=== PATIENT | male | born 1965 | race African-American/Black ===

== ENCOUNTER 2016-05-16 11:22 | Inpatient (IN) | payer OTHER ==
[2016-05-16 12:07] VITALS: BMI 32.1
--- NOTE | 2016-05-16 14:11 | HP ---
COWS - Scale Resting Pulse: 2= OK 101-120 Sweatin=Flushed/Facial Moisture Restless Observation: 1= Difficult to Sit Still Pupil Size: 1= Pupils >than Normal Bone or Joint Aches: 2= Severe Diffuse Aches Runny Nose/ Eye Tearin= Nasal Congestion GI Upset > 30mins: 1= Stomach Cramp Tremor Observation: 1= Tremor Morgan, Not Seen Yawning Observation: 0= None Anxiety or Irritability: 1=Feels Anxious/Irritable Goose Flesh Skin: 0=Smooth Skin COWS Score: 12 CIWA Score - CIWA Score Nausea/Vomitin Muscle Tremors: 2 Anxiety: 3 Agitation: 3 Paroxysmal Sweats: 2 Orientation: 0-Oriented Tacttile Disturbances: 2-Mild Itch/Numbness/Burn Auditory Disturbances: 0-None Visual Disturbances: 0-None Headache: 2-Mild CIWA-Ar Total Score: 16 Admission ROS BHS - HPI Chief Complaint: I Need to stop using drugs and alcohol .I need help. Allergies/Adverse Reactions: Allergies Allergy/AdvReac Type Severity Reaction Status Date / Time No Known Allergies Allergy Verified 02/05/14 19:35 History of Present Illness: 50 y/o m pt with h/o opioids , benzo, and alcohol dep. seeking detox. Exam Limitations: No Limitations - Ebola screening Have you traveled outside of the country in the last 21 days: No Have you had contact with anyone from an Ebola affected area: No Have you been sick,other than usual withdrawal symptoms: No Do you have a fever: No - Review of Systems Constitutional: Malaise, Night Sweats, Changes in sleep EENT: reports: Dental Problems Respiratory: reports: No Symptoms reported Cardiac: reports: No Symptoms Reported GI: reports: Nausea, Indigestion : reports: Other (hesitancy) Musculoskeletal: reports: Back Pain Integumentary: reports: Rash (eczema) Neuro: reports: Headache Endocrine: reports: No Symptoms Reported Hematology: reports: Easy Bleeding Psychiatric: reports: Agitated, Anxious, Depressed Other Systems: Reviewed and Negative Patient History - Patient Medical History Hx Anemia: No Hx Asthma: Yes Hx Chronic Obstructive Pulmonary Disease (COPD): No Hx Cancer: No Hx Cardiac Disorders: No Hx Congestive Heart Failure: No Hx Hypertension: Yes Hx Hypercholesterolemia: No Hx Pacemaker: No HX Cerebrovascular Accident: No Hx Seizures: No Hx Dementia: No Hx Diabetes: No Hx Gastrointestinal Disorders: No Hx Liver Disease: No Hx Genitourinary Disorders: No Hx Sexually Transmitted Disorders: No Hx Renal Disease (ESRD): No Hx Thyroid Disease: No Hx Human Immunodeficiency Virus (HIV): No Hx Hepatitis C: No Hx Depression: No Hx Suicide Attempt: No Hx Bipolar Disorder: Yes Hx Schizophrenia: No Other Medical History: h/o eczema - Patient Surgical History Past Surgical History: Yes Hx Neurologic Surgery: No Hx Cataract Extraction: No Hx Cardiac Surgery: No Hx Lung Surgery: No Hx Breast Surgery: No Hx Breast Biopsy: No Hx Abdominal Surgery: No Hx Appendectomy: No Hx Cholecystectomy: No Hx Genitourinary Surgery: No Hx Section: No Hx Orthopedic Surgery: Yes (RT.KNEE SX 2010, left shoulder , rt shoulder ) Anesthesia Reaction: No - PPD History Documented Results: Positive w/o proof PPD to be Administered?: No - Reproductive History Patient is a Female of Child Bearing Age (11 -55 yrs old): No - Smoking Cessation Smoking history: Current every day smoker Have you smoked in the past 12 months: Yes Aproximately how many cigarettes per day: 6 Cigars Per Day: 0 Hx Chewing Tobacco Use: No Initiated information on smoking cessation: Yes 'Breaking Loose' booklet given: 05/16/16 - Substance & Tx. History Hx Alcohol Use: Yes Hx Substance Use: Yes Substance Use Type: Alcohol, Opiates, Tranquilizers - Substances Abused Alcohol Route: Oral Frequency: Daily Amount used: amy 3 pts /d Age of first use: 15 Date of Last Use: 05/15/16 Benzodiazepine (Klonopin) Route: Oral Frequency: Daily Amount used: 1mg bid Age of first use: 46 Date of Last Use: 05/16/16 Heroin Route: Inhalation Frequency: 1-2 times per week Amount used: 1 bag/nasal Age of first use: 27 Date of Last Use: 05/16/16 percocet 10-325 Route: Oral Frequency: Daily Amount used: 1 tab bid Age of first use: 47 Date of Last Use: 05/16/16 Family Disease History - Family Disease History Family Disease History: Other: Father (htn ), Mother (htn), Sister (htn ) Admission Physical Exam BHS - Vital Signs Vital Signs: Vital Signs - 24 hr 05/16/16 12:04 Temperature 97.9 F Pulse Rate 110 H Respiratory 18 Rate Blood Pressure 141/91 50 y/o m pt aox3 in nad cooperative with exam . - Physical General Appearance: Yes: Disheveled, Obese, Anxious HEENTM: Yes: EOMI, Hearing grossly Normal, Normal Voice, KATHI Respiratory: Yes: Chest Non-Tender, Lungs Clear, Normal Breath Sounds, No Respiratory Distress Neck: Yes: Within Normal Limits, Supple, Trachea in good position Breast: Yes: Within Normal Limits Cardiology: Yes: Regular Rhythm, Regular Rate, S1, S2 Abdominal: Yes: Normal Bowel Sounds, Non Tender, Soft, Increased Bowel Sounds Genitourinary: Yes: Hesitency Back: Yes: Decreased Range of Motion Musculoskeletal: Yes: Back pain Extremities: Yes: Within Normal Limits Neurological: Yes: brick catcher II-XII NML intact, Fully Oriented, Motor Strength 5/5, Normal Response Integumentary: Yes: Rash Lymphatic: Yes: Within Normal Limits - Addiitonal Findings: eczema - Diagnostic (1) Alcohol dependence Current Visit: Yes Status: Chronic Qualifiers: Substance use status: uncomplicated Qualified Code(s): F10.20 - Alcohol dependence, uncomplicated (2) Benzodiazepine dependence Current Visit: No Status: Chronic (3) Bipolar depression Current Visit: Yes Status: Chronic (4) Chronic low back pain Current Visit: Yes Status: Chronic Qualifiers: Back pain laterality: right Sciatica presence: without sciatica Qualified Code(s): M54.5 - Low back pain; G89.29 - Other chronic pain (5) HTN (hypertension) Current Visit: Yes Status: Chronic Qualifiers: Hypertension type: essential hypertension Qualified Code(s): I10 - Essential (primary) hypertension (6) Nicotine dependence Current Visit: Yes Status: Chronic Qualifiers: Nicotine product type: cigarettes Substance use status: uncomplicated Qualified Code(s): F17.210 - Nicotine dependence, cigarettes, uncomplicated (7) Opioid dependence Current Visit: Yes Status: Chronic Qualifiers: Substance use status: uncomplicated Qualified Code(s): F11.20 - Opioid dependence, uncomplicated Cleared for Admission BHS - Detox or Rehab [facility] Level of Care: Medically Managed Detox Regimen/Protocol: Methadone/Librium BHS Breath Alcohol Content Breath Alcohol Content: 0 Urine Drug Screen - Results Drug Screen Negative: No Urine Drug Screen Results: OPI-Opiates, MTD-Methadone, OXY-Oxycodone
[2016-05-16] MEDS ORDERED: NICOTINE POLACRILEX 2 MG GUM BC PRN ×2 (14:47→15:35)
[2016-05-16] MEDS ORDERED: MAG HYDROX/AL HYDROX/SIMETH 30 ML UNIT-DOSE CUP PO PRN ×2 (14:47→15:35)
[2016-05-16] MEDS ORDERED: MAGNESIUM CITRATE 300 ML BOTTLE PO PRN ×2 (14:47→15:35)
[2016-05-16] MEDS ORDERED: guaiFENesin/D-METHORPHAN HB 10 ML UNIT-DOSE CUPS PO PRN ×2 (14:47→15:35)
[2016-05-16] MEDS ORDERED: chlordiazePOXIDE HCL 25 MG CAPSULE PO PRN ×2 (14:47→15:35)
[2016-05-16] MEDS ORDERED: IBUPROFEN 400 MG TABLET (FP) PO PRN (14:47)
[2016-05-16] MEDS ORDERED: METHADONE HCL 10 MG TABLET (FOR DETOX USE ONLY) PO ONE ×2 (14:47→23:00)
[2016-05-16] MEDS ORDERED: LOPERAMIDE HCL 2 MG CAPSULE PO PRN ×2 (14:47→15:35)
[2016-05-16] MEDS ORDERED: diphenhydrAMINE HCL 50 MG CAPSULE PO PRN ×2 (14:47→15:35)
[2016-05-16] MEDS ORDERED: ACETAMINOPHEN 325 MG TABLET (FP) PO PRN ×2 (14:47→15:35)
[2016-05-16] MEDS ORDERED: MAGNESIUM HYDROX 2400MG/30ML ORAL SUSPENSION 30 ML CUP PO PRN ×2 (14:47→15:35)
[2016-05-16] MEDS ORDERED: MENTHOL/PHENOL 1 EACH UD MM PRN ×2 (14:47→15:35)
[2016-05-16] MEDS ORDERED: P-EPHED 60MG/TRIPROLIDI 2.5MG TABLET PO PRN ×2 (14:47→15:35)
[2016-05-16] MEDS ORDERED: hydrOXYzine PAMOATE 25 MG CAPSULE (FP) PO PRN ×2 (14:47→15:35)
[2016-05-16] MEDS ORDERED: ALBUTEROL SO4 6.7 GM HFA INHALER IH PRN ×2 (14:49→15:39)
[2016-05-16] MEDS ORDERED: HYDROCORTISONE 1% TOPICAL CREAM 30 GM TUBE TP PRN (14:51)
[2016-05-16] MEDS ORDERED: chlordiazePOXIDE HCL 25 MG CAPSULE PO SCH ×2 (17:00)
[2016-05-16] MEDS: chlordiazePOXIDE HCL 25 MG CAPSULE PO SCH ×2 (17:22→22:57)
[2016-05-16] MEDS ORDERED: THIAMINE HCL 100 MG TABLET (FP) PO SCH (22:00)
[2016-05-16] MEDS: THIAMINE HCL 100 MG TABLET (FP) PO SCH (22:57)
[2016-05-16 23:07] LABS: URINE APPEARANCE CLEAR; URINE BILIRUBIN NEGATIVE (NEGATIVE); URINE BLOOD NEGATIVE (NEGATIVE); URINE COLOR LT. YELLOW; URINE GLUCOSE (UA) NEGATIVE (NEGATIVE); URINE KETONE NEGATIVE (NEGATIVE); URINE NITRITE NEGATIVE (NEGATIVE); URINE PROTEIN NEGATIVE (NEGATIVE); URINE UROBILINOGEN 0.2 E.U/dl E.U./dl (0.2-1.0)
[2016-05-16 23:09] LABS: URINE LEUK ESTERASE TRACE (NEGATIVE)
[2016-05-16 23:14] LABS: URINE MUCUS RARE; URINE RBC 23 /hpf (0-3); URINE WBC 23 /hpf (3-5)
[2016-05-17] MEDS: chlordiazePOXIDE HCL 25 MG CAPSULE PO SCH ×4 (05:44→22:27)
--- NOTE | 2016-05-17 08:22 | CONSULT ---
[facility] Psychiatric Consult - Data Date of interview: 05/17/16 Admission source: [facility] Identifying data: This is 50 years old male with no psychiatric hospitalization history intoxicated with Opioids, Alcohol, Xanax and Nicotine, Cocaine. Patient with Bipolar Disorder history Substance Abuse History: Smoking history: Current every day smoker. Have you smoked in the past 12 months: Yes. Aproximately how many cigarettes per day: 6. Cigars Per Day: 0. Hx Chewing Tobacco Use: No. Initiated information on smoking cessation: Yes. 'Breaking Loose' booklet given: 05/16/16. - Substance & Tx. History. Hx Alcohol Use: Yes. Hx Substance Use: Yes. Substance Use Type : Alcohol, Opiates, Tranquilizers. - Substances Abused. Alcohol. Route: Oral. Frequency: Daily. Amount used: amy 3 pts /d. Age of first use: 15. Date of Last Use: 05/15/16. Benzodiazepine (Klonopin). Route: Oral. Frequency: Daily. Amount used: 1mg bid. Age of first use: 46. Date of Last Use: 05/16/16. Heroin. Route: Inhalation. Frequency: 1-2 times per week. Amount used: 1 bag/nasal. Age of first use: 27. Date of Last Use: 05/16/16. * * percocet 10-325. Route: Oral. Frequency: Daily. Amount used: 1 tab bid. Age of first use: 47. Date of Last Use: 05/16/16 Medical History: LBP, Arthritis history, PPD+ History Psychiatric History: Patient has Bipolar disorder history, reports taking prior to admission: Ambien 19mg po qhs for severe insomnia with good response Physical/Sexual Abuse/Trauma History: Denies Additional Comment: Ambien 19mg po qhs Mental Status Exam - Mental Status Exam Alert and Oriented to: Person Cognitive Function: Fair Patient Appearance: Unkempt Mood: Sad Affect: Mood Congruent Patient Behavior: Cooperative Speech Pattern: Appropriate Voice Loudness: Mildly Soft/Quiet Thought Process: Goal Oriented Thought Disorder: Being Controlled Hallucinations: Denies Suicidal Ideation: Denies Homicidal Ideation: Denies Insight/Judgement: Fair Sleep: Difficulty falling asleep Appetite: Fair Muscle strength/Tone: Mild Hypotonicity Gait/Station: Shuffling Additional Comments: Ambien 19mg po qhs Psychiatric Findings - Problem List ([place] 1, 2,3) (1) Alcohol dependence Current Visit: Yes Status: Chronic Qualifiers: Substance use status: uncomplicated Qualified Code(s): F10.20 - Alcohol dependence, uncomplicated (2) Bipolar depression Current Visit: Yes Status: Suspected (3) Nicotine dependence Current Visit: Yes Status: Chronic Qualifiers: Nicotine product type: cigarettes Substance use status: uncomplicated Qualified Code(s): F17.210 - Nicotine dependence, cigarettes, uncomplicated (4) Opioid dependence Current Visit: Yes Status: Chronic Qualifiers: Substance use status: uncomplicated Qualified Code(s): F11.20 - Opioid dependence, uncomplicated (5) Benzodiazepine dependence Current Visit: No Status: Chronic (6) Cocaine dependence Current Visit: No Status: Chronic (7) Drug-induced mood disorder Current Visit: Yes Status: Acute - Initial Treatment Plan Initial Treatment Plan: Ambien 19mg po qhs
[2016-05-17] MEDS ORDERED: diazePAM 5 MG TABLET PO PRN (09:23)
[2016-05-17] MEDS ORDERED: METHADONE HCL 10 MG TABLET (FOR DETOX USE ONLY) PO ONE ×2 (09:30→23:00)
--- NOTE | 2016-05-17 09:52 | PN ---
[facility] CIWA - CIWA Score Nausea/Vomitin Muscle Tremors: 2 Anxiety: 3 Agitation: 2 Paroxysmal Sweats: 3 Orientation: 0-Oriented Tacttile Disturbances: 1-Very Mild Itch/Numbness Auditory Disturbances: 0-None Visual Disturbances: 0-None Headache: 0-None Present CIWA-Ar Total Score: 14 S COWS - Scale Resting Pulse: 0= ND 80 or Below Sweatin= Chills/Flushing Restless Observation: 1= Difficult to Sit Still Pupil Size: 1= Pupils >than Normal Bone or Joint Aches: 0= None Runny Nose/ Eye Tearin= Nasal Congestion GI Upset > 30mins: 1= Stomach Cramp Tremor Observation of Outstretched Hands: 1= Tremor Bedias, Not Seen Yawning Observation: 0= None Anxiety or Irritability: 2=Irritable/Anxious Goose Flesh Skin: 0=Smooth Skin COWS Score: 8 S Progress Note (SOAP) Subjective: interrupted sleep, sweats, nausea Objective: 05/17/16 09:51 Vital Signs Temperature 97 F L 05/17/16 05:53 Pulse Rate 79 05/17/16 05:53 Respiratory Rate 18 05/17/16 05:53 Blood Pressure 136/80 05/17/16 05:53 O2 Sat by Pulse Oximetry (%) Laboratory Tests 05/16/16 22:20 Urine Color Lt. yellow Urine Appearance Clear Urine pH 6.0 Ur Specific [place] 1.020 Urine Protein Negative Urine Glucose (UA) Negative Urine Ketones Negative Urine Blood Negative Urine Nitrite Negative Urine Bilirubin Negative Urine Urobilinogen 0.2 e.u/dl Ur Leukocyte Esterase Trace H Urine RBC 23 Urine WBC 23 Ur Epithelial Cells Rare Urine Mucus Rare pending labs Assessment: 05/17/16 09:51 withdrawal sxms Plan: cont. detox increase fluids
[2016-05-17] MEDS ORDERED: amLODIPine BESYLATE 5 MG TABLET (FP) PO SCH (10:00)
[2016-05-17] MEDS ORDERED: NICOTINE 14 MG/24 HOURS TOPICAL PATCH TD SCH (10:00)
[2016-05-17] MEDS ORDERED: METHADONE HCL 10 MG TABLET (FOR DETOX USE ONLY) PO SCH (10:00)
[2016-05-17] MEDS ORDERED: PRENATAL VITAMINS W/ FOLIC ACID TABLET (FP) PO SCH (10:00)
[2016-05-17 10:21] LABS: MCH 27.7 pg (25.7-33.7); MCHC 32.5 g/dl (32.0-35.9); MEAN CELL VOLUME 85.3 fl (80-96); MEAN PLT VOLUME 9.6 fl (7.5-11.1); PLATELET COUNT 197 K/MM3 (134-434); WHITE BLOOD COUNT 5.6 K/mm3 (4.0-10.0)
[2016-05-17] MEDS: amLODIPine BESYLATE 5 MG TABLET (FP) PO SCH (10:49)
[2016-05-17] MEDS: NICOTINE 14 MG/24 HOURS TOPICAL PATCH TD SCH (10:49)
[2016-05-17 10:51] LABS: ALBUMIN 3.8 g/dl (3.4-5.0); ALK PHOS 57 U/L (45-117); ANION GAP 8 (8-16); BILIRUBIN,TOTAL 0.4 mg/dL (0.2-1.0); CALCIUM 8.9 mg/dL (8.5-10.1); CO2 27 mmol/L (21-32); GLUCOSE,RANDOM 112 mg/dL (74-106); SGOT/AST 16 U/L (15-37); SGPT/ALT 26 U/L (12-78); TOT PROT 7.1 g/dl (6.4-8.2)
[2016-05-17] MEDS: PRENATAL VITAMINS W/ FOLIC ACID TABLET (FP) PO SCH (10:52)
[2016-05-17 11:10] LABS: HIV 1 & 2 AB NEGATIVE; HIV 1 AGp24 NEGATIVE
[2016-05-17] MEDS: chlordiazePOXIDE HCL 25 MG CAPSULE PO PRN (15:25)
--- NOTE | 2016-05-17 16:34 | EKG ---
Test Reason : Blood Pressure : / mmHG Vent. Rate : 090 BPM Atrial Rate : 090 BPM P-R Int : 170 ms QRS Dur : 092 ms QT Int : 372 ms P-R-T Axes : 047 029 020 degrees QTc Int : 455 ms NORMAL SINUS RHYTHM NORMAL ECG NO PREVIOUS ECGS AVAILABLE Confirmed by YAZMIN HENRIQUEZ MD ([id number]) on 05/17/2016 4:33:39 PM Referred By: Confirmed By:YAZMIN HENRIQUEZ MD
[2016-05-17] MEDS ORDERED: chlordiazePOXIDE HCL 25 MG CAPSULE PO SCH ×2 (17:00)
[2016-05-17] MEDS ORDERED: ZOLPIDEM TARTRATE 10 MG TABLET (PARK CARE ONLY) PO PRN (22:00)
[2016-05-17] MEDS: THIAMINE HCL 100 MG TABLET (FP) PO SCH (22:27)
[2016-05-18] MEDS: IBUPROFEN 400 MG TABLET (FP) PO PRN ×2 (03:09→11:31)
[2016-05-18] MEDS: chlordiazePOXIDE HCL 25 MG CAPSULE PO PRN ×2 (03:13→07:37)
[2016-05-18] MEDS: chlordiazePOXIDE HCL 25 MG CAPSULE PO SCH ×2 (05:00→10:17)
[2016-05-18] MEDS ORDERED: METHADONE HCL 5 MG TABLET (FOR DETOX USE ONLY) PO ONE (10:00)
[2016-05-18] MEDS ORDERED: METHADONE HCL 5 MG TABLET (FOR DETOX USE ONLY) PO SCH (10:00)
[2016-05-18 10:06] VITALS: BP 148/87; PULSE 79; TEMP 97.2
[2016-05-18] MEDS: PRENATAL VITAMINS W/ FOLIC ACID TABLET (FP) PO SCH (10:16)
[2016-05-18] MEDS: amLODIPine BESYLATE 5 MG TABLET (FP) PO SCH (10:17)
[2016-05-18] MEDS: NICOTINE 14 MG/24 HOURS TOPICAL PATCH TD SCH (10:18)
--- NOTE | 2016-05-18 11:06 | PN ---
[facility] CIWA - CIWA Score Nausea/Vomitin Muscle Tremors: 3 Anxiety: 3 Agitation: 2 Paroxysmal Sweats: 1-Minimal Palms Moist Orientation: 0-Oriented Tacttile Disturbances: 1-Very Mild Itch/Numbness Auditory Disturbances: 1-Very Mild Visual Disturbances: 1-Very Mild Sensitivity Headache: 2-Mild CIWA-Ar Total Score: 17 S Progress Note (SOAP) Subjective: ALERT,IRRITABLE,ANXIOUS,INTERRUPTED SLEEP,TREMOR Objective: 05/18/16 11:04 Vital Signs Temperature 97.2 F L 05/18/16 10:05 Pulse Rate 79 05/18/16 10:05 Respiratory Rate 20 05/18/16 10:05 Blood Pressure 148/87 05/18/16 10:05 O2 Sat by Pulse Oximetry (%) EKG NSR,NORMAL ECG Laboratory Last Values WBC 5.6 K/mm3 (4.0-10.0) 05/17/16 06:00 RBC 4.55 M/mm3 (4.00-5.60) 05/17/16 06:00 Hgb 12.6 GM/dL (11.7-16.9) 05/17/16 06:00 Hct 38.8 % (35.4-49) 05/17/16 06:00 MCV 85.3 fl (80-96) 05/17/16 06:00 MCHC 32.5 g/dl (32.0-35.9) 05/17/16 06:00 RDW 15.0 % (11.9-15.9) 05/17/16 06:00 Plt Count 197 K/MM3 (134-434) 05/17/16 06:00 MPV 9.6 fl (7.5-11.1) 05/17/16 06:00 Sodium 142 mmol/L (136-145) 05/17/16 06:00 Potassium 3.9 mmol/L (3.5-5.1) 05/17/16 06:00 Chloride 107 mmol/L (98-107) 05/17/16 06:00 Carbon Dioxide 27 mmol/L (21-32) 05/17/16 06:00 Anion Gap 8 (8-16) 05/17/16 06:00 BUN 20 mg/dL (7-18) H D 05/17/16 06:00 Creatinine 1.0 mg/dL (0.7-1.3) D 05/17/16 06:00 Creat Clearance w eGFR > 60 (>60) 05/17/16 06:00 Random Glucose 112 mg/dL (74-106) H D 05/17/16 06:00 Calcium 8.9 mg/dL (8.5-10.1) 05/17/16 06:00 Total Bilirubin 0.4 mg/dL (0.2-1.0) D 05/17/16 06:00 AST 16 U/L (15-37) D 05/17/16 06:00 ALT 26 U/L (12-78) D 05/17/16 06:00 Alkaline Phosphatase 57 U/L (45-117) 05/17/16 06:00 Total Protein 7.1 g/dl (6.4-8.2) 05/17/16 06:00 Albumin 3.8 g/dl (3.4-5.0) 05/17/16 06:00 Urine Color Lt. yellow 05/16/16 22:20 Urine Appearance Clear 05/16/16 22:20 Urine pH 6.0 (5.0-8.0) 05/16/16 22:20 Ur Specific [place] 1.020 (1.001-1.035) 05/16/16 22:20 Urine Protein Negative (NEGATIVE) 05/16/16 22:20 Urine Glucose (UA) Negative (NEGATIVE) 05/16/16 22:20 Urine Ketones Negative (NEGATIVE) 05/16/16 22:20 Urine Blood Negative (NEGATIVE) 05/16/16 22:20 Urine Nitrite Negative (NEGATIVE) 05/16/16 22:20 Urine Bilirubin Negative (NEGATIVE) 05/16/16 22:20 Urine Urobilinogen 0.2 e.u/dl E.U./dl (0.2-1.0) 05/16/16 22:20 Ur Leukocyte Esterase Trace (NEGATIVE) H 05/16/16 22:20 Urine RBC 23 /hpf (0-3) 05/16/16 22:20 Urine WBC 23 /hpf (3-5) 05/16/16 22:20 Ur Epithelial Cells Rare /hpf (FEW) 05/16/16 22:20 Urine Mucus Rare 05/16/16 22:20 RPR Titer Nonreactive (NONREACTIVE) 05/17/16 06:00 HIV 1&2 Antibody Screen Negative 05/16/16 08:40 HIV P24 Antigen Negative 05/16/16 08:40 Assessment: 05/18/16 11:05 WITHDRAWAL SYMPTOM Plan: CONTINUE DETOX,REPEAT UA,BGM MONITORING
--- NOTE | 2016-05-18 12:07 | DS ---
[facility] Detox Discharge Summary Admission Date: 05/16/16 Discharge Date: 05/18/16 - History Present History: Alcohol Dependence - Physical Exam Results Vital Signs: Vital Signs Temperature 97.2 F L 05/18/16 10:05 Pulse Rate 79 05/18/16 10:05 Respiratory Rate 20 05/18/16 10:05 Blood Pressure 148/87 05/18/16 10:05 O2 Sat by Pulse Oximetry (%) Pertinent Admission Physical Exam Findings: pt signing out ama for personal reasons - does not disclose - Medication Discharge Medications: Ambulatory Orders Albuterol Sulfate Inhaler - [Ventolin HFA Inhaler -] 2 inh PO Q4H PRN 02/05/14 Amlodipine Besylate [Norvasc -] 5 mg PO DAILY 05/16/16 Zolpidem Tartrate [Ambien] 10 mg PO HS 05/16/16 Zolpidem Tartrate [Ambien] 0 mg PO HS #14 tablet MDD 10 05/17/16 Zolpidem Tartrate [Ambien] 10 mg GT HS #14 tablet MDD 10 05/17/16 Zolpidem Tartrate [Ambien] 10 mg PO HS PRN #14 tablet MDD 10 05/17/16 - AMA Did Patient Leave Against Medical Advice: Yes
[2016-05-18] MEDS ORDERED: chlordiazePOXIDE 5 MG CAPSULE PO SCH ×3 (17:00)
[2016-05-19] MEDS ORDERED: METHADONE HCL 5 MG TABLET (FOR DETOX USE ONLY) PO ONE (10:00)
[2016-05-19] MEDS ORDERED: chlordiazePOXIDE HCL 10 MG CAPSULE PO SCH ×3 (17:00)
[2016-05-20] MEDS ORDERED: METHADONE HCL 10 MG TABLET (FOR DETOX USE ONLY) PO ONE (10:00)
[2016-05-20] MEDS ORDERED: METHADONE HCL 10 MG TABLET (FOR DETOX USE ONLY) PO SCH (10:00)
[2016-05-21] MEDS ORDERED: METHADONE HCL 5 MG TABLET (FOR DETOX USE ONLY) PO ONE (06:00)
[2016-05-21] MEDS ORDERED: METHADONE HCL 5 MG TABLET (FOR DETOX USE ONLY) PO SCH (06:00)
== END 2016-05-18 12:40 | disposition left against medical advice (07) | DRG 770 ==
LOC: YASAS 11:22 → Y6N 15:54
PROVIDERS: ADMIT Internal Medicine Addiction Medicine; ATTEND Internal Medicine Addiction Medicine
PROC: HZ2ZZZZ Detoxification Services for Substance Abuse Treatment (ICD-10-PCS; principal; 2016-05-16)
DX: F10.230 Alcohol dependence with withdrawal, uncomplicated (principal); F11.23 Opioid dependence with withdrawal; F13.230 Sedative, hypnotic or anxiolytic dependence with withdrawal, uncomplicated; F17.210 Nicotine dependence, cigarettes, uncomplicated; F19.24 Other psychoactive substance dependence with psychoactive substance-induced mood disorder; F31.9 Bipolar disorder, unspecified; J45.909 Unspecified asthma, uncomplicated; I10 Essential (primary) hypertension; E66.9 Obesity, unspecified; Z68.32 Body mass index [BMI] 32.0-32.9, adult; M54.5 Low back pain; G89.29 Other chronic pain
CPT/HCPCS: 36415; 80053; 81003; 81015; 85027; 86593; 87389; 93005; 93010